=== PATIENT | male | born 1975 | race Two or more races ===

== ENCOUNTER 2020-06-28 10:31 | Emergency (ER) | payer OTHER ==
[~2020-06-28] VITALS: Ht 162.6 cm; Wt 113.0 kg
[2020-06-28] MEDS ORDERED: DIPH,PERTUSS(ACELL),TET VAC/PF 0.5 ML SYRINGE. VAX IM ONE ×2 (10:59→11:00)
--- NOTE | 2020-06-28 10:59 | PHYS DOC ---
Adult General [facility] HPI Patient is a 45-year-old male who presents to the emergency room after cutting his finger with a saw. He states his tetanus is not up-to-date. He denies any other complaints. He does not have any other injuries. He states that he had some bleeding initially but it is slowed down. He denies any difficulty moving his hand. He states his hand feels normal. Review of Systems Review of Systems Complete ROS is negative unless otherwise documented in HPI Physical Exam Physical Exam General: Awake, alert, NAD. Well Nourished, well hydrated. Cooperative HEENT: Atraumatic, EOMI, PERRL, airway patent, moist oral mucosa Neck: Supple, trachea midline Respiratory: CTA bilaterally, normal effort, no wheezing/crackles CV: RRR, no murmur, cap refill <2 GI: Soft, nondistended, nontender, no masses MSK: No obvious deformities Skin: Warm, dry, krish shaped 1 cm avulsion of skin to the fourth finger on the right hand with minimal bleeding, normal range of motion, intact sensation Neuro: A&O x3, speech NL, sensory and motor grossly intact, no focal deficits Psych: Normal affect, normal mood, not suicidal or homicidal EKG EKG [] Radiology/Procedures Radiology/Procedures [] Heart Score Risk Factors: Risk Factors: DM, Current or recent (<one month) smoker, HTN, HLP, family history of CAD, obesity. Risk Scores: Risk Factors: DM, Current or recent (<one month) smoker, HTN, HLP, family history of CAD, obesity. Course & Med Decision Making Course & Med Decision Making Pertinent Labs and Imaging studies reviewed. (See chart for details) Patient is a 45-year-old male presents to the emergency room after cutting himself with a saw. Patient has an avulsion of the skin. Tendons appear to be intact. Sensation and movement are normal. At this time we are unable to repair the skin as it is a deep avulsion and not a laceration. We discussed proper wound care. Tetanus was updated. Patient's test results and vitals while in the ED were fully reviewed and discussed with the patient. Patient is stable and at this time does not need admission to the hospital. We have discussed strict return precautions and the importance of following up with their Primary Care Physician. Patient stated understanding and was given an opportunity to ask any questions. Patient is in agreement with plan. Dragon Disclaimer Dragon Disclaimer This electronic medical record was generated, in whole or in part, using a voice recognition dictation system. Departure Departure: Impression: Primary Impression: Avulsion of skin of finger without complication Disposition: 01 DC HOME SELF CARE/HOMELESS Condition: STABLE Patient Instructions: Deep Skin Avulsion VIOLETTE FERNÁNDEZ MD Jun 28, 2020 10:59
[2020-06-28 11:37] VITALS: BP 152/94
== END 2020-06-28 11:07 | disposition home or self-care (01) ==
LOC: ER 10:31
DX: S61.304A Unspecified open wound of right ring finger with damage to nail, initial encounter (principal); W27.8XXA Contact with other nonpowered hand tool, initial encounter; Y93.89 Activity, other specified; Y92.89 Other specified places as the place of occurrence of the external cause; Y99.8 Other external cause status
CPT/HCPCS: 90471; 90715; 99283